=== PATIENT | female | born 1945 | race African-American/Black ===

== ENCOUNTER 2016-10-05 21:11 | Inpatient (IN) | payer MEDICAID, MEDICARE, OTHER ==
[~2016-10-05] VITALS: Ht 154.9 cm; Wt 69.9 kg
[2016-10-05 22:29] LABS: BASOPHILS % 0.9 % (0.0-2.0); EOSINOPHILS % 0.7 % (0.0-5.0); HEMATOCRIT. 39.7 % (36.0-48.0); HEMOGLOBIN. 13.3 g/dL (12.0-16.0); LYMPHOCYTES % 27.6 % (20.0-50.0); MEAN CORPUSCULAR HEMOGLOBIN 28.6 pg (28.0-32.0); MEAN CORPUSCULAR HGB CONC 33.5 g/dL (31.0-37.0); MEAN CORPUSCULAR VOLUME 85.4 fL (81.0-99.0); MEAN PLATELET VOLUME 8.2 fl (7.4-10.4); NEUTROPHILS % 63.8 % (40.0-76.0); PLATELET 270 x1000/uL (130-400); RED BLOOD CELL COUNT 4.65 mill/uL (4.2-5.4); WHITE BLOOD COUNT 9.9 x1000/uL (4.5-11.0)
[2016-10-05 22:34] LABS: CALCIUM 8.9 mg/dL (8.5-10.1); CHLORIDE 100 mEq/L (98-107); INDEX HEMOLYSI 1 (1-3); INDEX ICTERIC 1 (1-4); INDEX LIPEMIC 1 (1-3)
[2016-10-05 22:35] LABS: INR 1.1; PARTIAL THROMBOPLASTIN TIME 24.8 sec (24.0-34.0)
[2016-10-05 22:43] LABS: ALANINE AMINOTRANSFERASE 21 IU/L (13-61); ALBUMIN 3.9 g/dL (3.4-5.0); ANION GAP 16; CARBON DIOXIDE 25 mEq/L (21-32); CREATINE KINASE MB FRACTION 1.5 ng/mL (0.5-3.6); MAGNESIUM 1.5 mg/dL (1.8-2.4); NT PRO B-TYPE NATRIURETIC PEP 28 pg/mL (5-125); TROPONIN I < 0.02 ng/mL (0.00-0.04); UREA NITROGEN BLOOD 19 mg/dL (7-21); eGFR > 60 mL/min (>60)
[2016-10-05] MEDS ORDERED: SODIUM CHLORIDE 0.9% 500 ML IV ONE (22:56)
[2016-10-05] MEDS ORDERED: TRAMADOL 50MG TABLET PO ONE (23:00)
[2016-10-05] MEDS ORDERED: MAGNESIUM 1 G PREMIX 100 ML IV ONE (23:30)
[2016-10-06 03:50] VITALS: BP 111/63
[2016-10-06 04:00] VITALS: BP 111/63
[2016-10-06] MEDS ORDERED: LISI-186 PO (05:10)
[2016-10-06] MEDS ORDERED: GLIM4TAB2 PO (05:10)
[2016-10-06] MEDS ORDERED: SIMV20TA6 PO (05:10)
[2016-10-06] MEDS ORDERED: METF-246 PO (05:10)
[2016-10-06] MEDS ORDERED: ASPI-1035 PO (05:10)
[2016-10-06] MEDS ORDERED: ACETAMINOPHEN 325MG TABLET PO PRN (07:15)
[2016-10-06] MEDS ORDERED: CLONIDINE 0.1MG TABLET PO PRN (07:15)
[2016-10-06] MEDS ORDERED: ONDANSETRON HCL 4MG/2ML VIAL IV PRN (07:15)
[2016-10-06] MEDS: BLOOD SUGAR DIAGNOSTIC STRIP TEST SCH ×4 (07:36→21:36)
[2016-10-06] MEDS ORDERED: ASPIRIN 81MG EC TABLET PO SCH (07:45)
[2016-10-06] MEDS ORDERED: DEXTROSE 50% WATER 50ML SYRINGE IV PRN (07:45)
[2016-10-06 08:00] VITALS: BP 116/76
[2016-10-06] MEDS: INSULIN LISPRO 100 UNITS/ML SUBCUT SCH ×4 (08:35→21:34)
[2016-10-06] MEDS: ASPIRIN 81MG EC TABLET PO SCH (08:36)
[2016-10-06] MEDS: LISINOPRIL 5MG TABLET PO SCH (08:36)
[2016-10-06] MEDS: ENOXAPARIN 40MG/0.4ML SYR SUBCUT SCH (08:37)
[2016-10-06] MEDS: GLIMEPIRIDE 4MG TABLET PO SCH (08:37)
[2016-10-06] MEDS: METFORMIN HCL 500MG TABLET PO SCH ×2 (08:37→17:23)
[2016-10-06 12:00] VITALS: BP 120/81
[2016-10-06 16:45] VITALS: BP 107/68
[2016-10-06 20:00] VITALS: BP 111/59
[2016-10-06] MEDS ORDERED: MEDICATION NOT ON FORMULARY EA (Simvastatin 20 MG) PO SCH (21:00)
[2016-10-06] MEDS ORDERED: ATORVASTATIN CALCIUM 10MG TABLET PO SCH (21:00)
[2016-10-07] VITALS (7 sets, daily range): BP systolic 102–126; BP diastolic 64–73
[2016-10-07] MEDS: BLOOD SUGAR DIAGNOSTIC STRIP TEST SCH (06:51)
[2016-10-07 07:28] LABS: BASOPHILS % 1.2 % (0.0-2.0); EOSINOPHILS % 2.7 % (0.0-5.0); HEMOGLOBIN. 13.3 g/dL (12.0-16.0); LYMPHOCYTES % 55.8 % (20.0-50.0); MEAN CORPUSCULAR HEMOGLOBIN 28.6 pg (28.0-32.0); MEAN CORPUSCULAR HGB CONC 34.1 g/dL (31.0-37.0); MEAN CORPUSCULAR VOLUME 83.7 fL (81.0-99.0); MEAN PLATELET VOLUME 8.1 fl (7.4-10.4); MONOCYTES % 7.9 % (2.0-8.0); NEUTROPHILS % 32.4 % (40.0-76.0); PLATELET 273 x1000/uL (130-400); RED BLOOD CELL COUNT 4.66 mill/uL (4.2-5.4); WHITE BLOOD COUNT 6.2 x1000/uL (4.5-11.0)
[2016-10-07] MEDS: INSULIN LISPRO 100 UNITS/ML SUBCUT SCH (07:50)
[2016-10-07 08:05] LABS: ALBUMIN 3.8 g/dL (3.4-5.0); ANION GAP 13; CARBON DIOXIDE 25 mEq/L (21-32); CHLORIDE 104 mEq/L (98-107); INDEX HEMOLYSI 1 (1-3); INDEX ICTERIC 1 (1-4); INDEX LIPEMIC 1 (1-3); UREA NITROGEN BLOOD 19 mg/dL (7-21)
[2016-10-07 08:12] LABS: ALANINE AMINOTRANSFERASE 19 IU/L (13-61); eGFR > 60 mL/min (>60)
[2016-10-07] MEDS: METFORMIN HCL 500MG TABLET PO SCH (08:13)
[2016-10-07] MEDS: GLIMEPIRIDE 4MG TABLET PO SCH (08:13)
[2016-10-07] MEDS: LISINOPRIL 5MG TABLET PO SCH (08:14)
[2016-10-07] MEDS: ASPIRIN 81MG EC TABLET PO SCH (08:14)
[2016-10-07] MEDS: ENOXAPARIN 40MG/0.4ML SYR SUBCUT SCH (08:14)
== END 2016-10-07 17:30 | disposition home or self-care (01) | DRG 641 ==
LOC: ER 21:13 → 6WST 23:14
PROVIDERS: ADMIT Hospitalist; ATTEND Hospitalist
DX: E86.0 Dehydration (principal); I10 Essential (primary) hypertension; E11.65 Type 2 diabetes mellitus with hyperglycemia; E78.5 Hyperlipidemia, unspecified; E78.00 Pure hypercholesterolemia, unspecified
CPT/HCPCS: 36415; 70450; 71010; 80053; 82553; 82962; 83735; 83880; 84484; 85025; 85610; 85730; 93005; 96361; 96365; 99285; J1650; J1815; J3475; J7040